=== PATIENT | male | born 1960 | race Caucasian/White ===

== ENCOUNTER → 2021-08-17 | Outpatient (CLI) | payer BC ==
[~2021-08-17] MED LIST: ACET500 PO; CENTRUM SILVER1 EAC2 PO; HYDCHL25 PO; HYDR1TAB94 PO; IBUP600 PO; LOSA50 PO; Norco 5-325 Ta1 EACH PO; Voltaren100 GM TOP
== END | disposition home or self-care (01) ==
LOC: LAB 18:13 → LAB SHORT 18:13
DX: L02.212 Cutaneous abscess of back [any part, except buttock and flank] (principal)
CPT/HCPCS: 87070; 87205

== ENCOUNTER → 2021-10-02 | Outpatient (CLI) | payer BC | LOC: LAB SHORT 16:00 → LAB 16:00 | DX: L08.9 Local infection of the skin and subcutaneous tissue, unspecified (principal) | CPT/HCPCS: 87070; 87075; 87205 ==

== ENCOUNTER → 2021-10-14 | Outpatient (CLI) | payer BC | LOC: LAB SHORT 17:39 → LAB 17:39 | DX: D48.5 Neoplasm of uncertain behavior of skin (principal) | CPT/HCPCS: 87070; 87205 ==

== ENCOUNTER → 2021-12-09 | Outpatient (CLI) | payer BC | LOC: LAB 09:30 → LAB SHORT 09:30 | DX: D48.5 Neoplasm of uncertain behavior of skin (principal); L53.8 Other specified erythematous conditions | CPT/HCPCS: 87070; 87205 ==